=== PATIENT | female | born 1955 | race Caucasian/White ===

== ENCOUNTER 2017-03-03 11:15 | Emergency (ER) | payer MEDICARE, MEDICAID ==
[~2017-03-03] VITALS: Ht 160 cm; Wt 105.0 kg
[~2017-03-03 11:15] MED LIST: ATOR10TA9 PO; BUSP10TA PO; CHOL100011 PO; GABA800T2 PO; GEMF600T3 PO; INSU100V8 SQ; LISI2.5T PO; METO25TA35 PO; OXYB5TAB7 PO; RANI300C PO; SERT100T5 PO; TRAM50TA2 PO; TRAZ50TA18 PO
[2017-03-03] MEDS ORDERED: LOSA25TA5 PO (11:59)
[2017-03-03] MEDS ORDERED: SODIUM CHLORIDE 0.9% 1,000ML IVBOLUS ONE (12:00)
[2017-03-03 12:26] LABS: BLOOD UREA NITROGEN 15 mg/dL (7-18)
[2017-03-03 12:32] LABS: IS PT STATUS REG ER OR PRE ER? YES
[2017-03-03 14:00] VITALS: BP 143/78
== END 2017-03-03 14:03 | disposition home or self-care (01) ==
LOC: ED 12:33
DX: R55 Syncope and collapse (principal); R42 Dizziness and giddiness; E11.9 Type 2 diabetes mellitus without complications; E78.5 Hyperlipidemia, unspecified; I10 Essential (primary) hypertension
CPT/HCPCS: 36415; 71010; 80048; 81003; 82040; 84484; 85025; 93005; 96360; 99285; J7030

== ENCOUNTER → 2017-06-27 | Outpatient (CLI) | payer MEDICARE, MEDICAID ==
[~2017-06-27] MED LIST changes: +LOSA25TA5 PO
== END | disposition home or self-care (01) ==
LOC: CFH 13:07
PROVIDERS: ATTEND Nurse Practitioner Primary Care
DX: Z12.31 Encounter for screening mammogram for malignant neoplasm of breast (principal)
CPT/HCPCS: G0202

== ENCOUNTER 2017-12-22 20:15 | Emergency (ER) | payer MEDICARE, MEDICAID ==
[~2017-12-22] VITALS: Ht 160 cm; Wt 100.0 kg
[~2017-12-22 20:15] MED LIST changes: +AZIT500T PO; +CEFD300C37 PO; +GUAI200T3 PO; +INSU100I18 SQ-INSULIN; +METF500T PO; +PRED20TA PO; +TRAMADOL
[2017-12-22] MEDS ORDERED: SODIUM CHLORIDE FLUSH 10ML SYR IVF ONE (21:30)
[2017-12-22] MEDS ORDERED: ACETAMINOPHEN 500 MG TABLET PO ONE (21:30)
[2017-12-22] MEDS ORDERED: DIAZEPAM 5 MG TABLET PO ONE (21:30)
[2017-12-22] MEDS ORDERED: ACETAMINOPHEN 500 MG TABLET ONE (21:45)
[2017-12-22] MEDS ORDERED: DIAZEPAM 5 MG TABLET ONE (21:46)
[2017-12-22 22:30] LABS: MEAN CORPUSCULAR HEMOGLOBIN 28.2 pg (27.0-34.8); MEAN CORPUSCULAR HGB CONC 33.1 g/dL (32.4-35.8); MEAN PLATELET VOLUME 8.5 fL (7.4-10.4); PLATELET COUNT 240 x10^3/uL (130-400); RED BLOOD COUNT 4.89 x10^6/uL (3.82-5.3); RED CELL DISTRIBUTION WIDTH 15.2 % (9.6-15.2)
[2017-12-22 22:42] LABS: ALANINE AMINOTRANSFERASE 17 U/L (12-78); ALBUMIN 3.5 g/dL (3.4-5.0); ANION GAP 6 mmol/L (5-15); CALCIUM 9.4 mg/dL (8.5-10.1); CHLORIDE 109 mmol/L (98-107); CREATININE 0.75 mg/dL (0.55-1.02)
[2017-12-22 22:44] LABS: ALKALINE PHOSPHATASE 34 U/L (45-117); BILIRUBIN,TOTAL 0.5 mg/dL (0.2-1.0); TOTAL PROTEIN 7.3 g/dL (6.4-8.2)
[2017-12-22 22:53] LABS: BASOPHILS # (AUTO) 0.21 x10^3/uL (0-0.1); BASOPHILS % (AUTO) 2 % (0-1); EOSINOPHILS # (AUTO) 0.16 x10^3/uL (0-0.4); EOSINOPHILS % (AUTO) 1 % (1-7); LYMPHOCYTES # (AUTO) 5.12 x10^3/uL (1-3.4); LYMPHOCYTES % (AUTO) 37 % (22-44); MD SCAN; MONOCYTES # (AUTO) 0.63 x10^3/uL (0.2-0.8); MONOCYTES % (AUTO) 5 % (2-9); NEUTROPHILS # (AUTO) 7.61 x10^3/uL (1.8-6.8); NEUTROPHILS % (AUTO) 55 % (42-75)
[2017-12-22 23:40] VITALS: BP 114/47
[2017-12-22] MEDS ORDERED: OMNIPAQUE 350 MG/ML, 100ML BOTTLE ONE (23:42)
== END 2017-12-23 00:36 | disposition home or self-care (01) ==
LOC: ED 23:11
DX: S33.5XXA Sprain of ligaments of lumbar spine, initial encounter (principal); S93.491A Sprain of other ligament of right ankle, initial encounter; T14.8XXA Other injury of unspecified body region, initial encounter; J44.9 Chronic obstructive pulmonary disease, unspecified; E11.9 Type 2 diabetes mellitus without complications; E78.5 Hyperlipidemia, unspecified; W01.0XXA Fall on same level from slipping, tripping and stumbling without subsequent striking against object, initial encounter; Y93.89 Activity, other specified; Y92.098 Other place in other non-institutional residence as the place of occurrence of the external cause; Y99.8 Other external cause status
CPT/HCPCS: 36415; 72050; 72110; 73502; 73610; 74177; 80053; 85025; 99285; Q9967